=== PATIENT | male | born 1995 | race Caucasian/White ===

== ENCOUNTER → 2024-07-21 | Outpatient (CLI) | payer OTHER, SELFPAY ==
--- NOTE | 2024-07-21 15:26 | RAD_ITS ---
PROCEDURE: LUMBAR SPINE 2 OR 3 VIEWS 07/21/2024 REASON FOR EXAM: LOW BACK INJURY TECHNIQUE: 2 view(s) of the lumbar spine, AP and lateral COMPARISON: None available FINDINGS: 5 [id number] lumbar vertebral type bodies identified. No fracture or malalignment. The disc spaces appear within limits. No osseous lesion identified. RAD/Lumbar Spine 2 or 3 Views IMPRESSION: Study appears within limits. Reading Location: [id number]
== END | disposition home or self-care (01) ==
PROVIDERS: PCP Family Medicine; Referring Provider Family Medicine; Visit Provider Family Medicine
DX: M54.50 Low back pain, unspecified (principal)
CPT/HCPCS: 72100

== ENCOUNTER → 2024-09-01 | Outpatient (CLI) | payer OTHER, SELFPAY ==
--- NOTE | 2024-09-01 08:00 | MRI_ITS ---
PROCEDURE: SPINE LUMBAR (ROUTINE) 09/01/2024 REASON FOR EXAM: ONGOING BACK PAIN WITH RADICULOPATHY TECHNIQUE: Multiplanar and multisequence images were obtained without IV contrast administration. COMPARISON: Lumbar spine series of 07/21/2024. FINDINGS: Vertebrae: Intact. No abnormal vertebral signal is seen. Alignment: Satisfactory. No evidence of spondylolysis or spondylolisthesis. Conus Medullaris: Satisfactory appearance and position. Tip projects at the L1- L2 level. L1-2: Unremarkable L2-3: Unremarkable L3-4: Unremarkable L4-5: Disc degeneration mild disc space narrowing. A mild broad-based disc protrusion is seen. No spinal canal stenosis or neural foraminal narrowing is noted. L5-S1: Disc degeneration with mild disc space narrowing. A [id number] central disc protrusion is seen. No significant spinal canal stenosis is noted. Possible mild left neural foraminal narrowing. Sacrum: Visualized portions show no significant abnormality. MRI/Spine Lumbar (Routine) IMPRESSION: Lower lumbar degenerative disc disease, as described. No significant spinal ca nal stenosis is seen. Reading Location: [place] [id number]
== END | disposition home or self-care (01) ==
PROVIDERS: PCP Family Medicine; Referring Provider Family Medicine; Visit Provider Family Medicine
DX: M54.16 Radiculopathy, lumbar region (principal)
CPT/HCPCS: 72148

== ENCOUNTER 2024-11-13 17:30 | Outpatient (RCR) | payer OTHER, SELFPAY ==
--- NOTE | 2024-09-29 14:28 | HP.PTEVAL ---
Patient's Visit Information Visit Information Visit Information: KAIA WINKLER is a 29 year old M referred to Physical Therapy by JUAN FRANCISCO Farias with a diagnosis of Lumb ar radiculopathy. Date of Evaluation: 09/29/24 Physical Therapist: Ernst Cottrell, DPT, OCS, CSCS Visit Plan Frequency: 2x /Week Duration: 4-6 Weeks Plan: 2x/week for 2-4 weeeks to start for ROM progression extension with mobs as needed, return to flexion rotation ex then mat based core strength adn talk through return to gym ex program. Body mechanics andcpostural focus 2 weeks scehduleed at first as he is doing well. IE HEP: PPU, posture with towel roll, body machanics, activity modifcaiton with bending. 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 No warning and no real history. usually goes to gym but had not been going for a while. it hurt right away and had to sit on knees for a while. Lied in bed and could not get up well. Hard to get out of bed for a week. Ibuprofen and saw doctor Akilah 10 days later and it was improved. Sent to pain management and will not do injections. 90% better overall. Feels not bad at all now. Sitting for long time gets achy and sore. Stiffer in am. Has been rolling out which helps. Does not want to take pain killers. 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 Walking is no problem. Wants to get back in gym. Yard work adn working on cars Pain LBP: Pain Intensity (Out of 10): 0 Pain Intensity Range: 0 and 2 Comment: worse twisting even in bed. sitting at work. Objective Objective: Walks into PT I, trasnfers I and without pain. Lumbar AROM ext mod limited and centrally painful, SB min painful central L>R , flexion no limitations. reflexes 2/3 patella and achilles Sensation LE WNL to gross light touch. Strength LE and core 4+ without myotomal problems or weakness SLR - and slump - repeated ext i lie improvs exxt ROM and less pain. Balance/Special Test Scores Oswestry Low Back Score: 3 Goals Goal 1:: Back xxteension unlimited and no pain Goal Time Frame: 4-6 Weeks Goal 2:: Pt feel 99% back to normal and 1/10 pain at worst Goal Time Frame: 4-6 Weeks Goal 3:: I appropriate HEP for rom, strength, body mechanics and posture. Goal Time Frame: 4-6 Weeks Goal 4:: Back to playing basketball Goal Time Frame: 4-6 Weeks Goal 5:: 1 or better on oswestry Goal Time Frame: 4-6 Weeks Rehabilitation Potential Physical Therapy Diagnosis: Lb pain and stiffness limiting comfortable funciton. Rehabilitation Potential: Good Anticipated Interventions Patient/Client Instruction: Educate patient on: Condition and Plan of Care For the Purpose of:: To decrease pain, To increase ROM, To improve nutrient delivery to tissue, To improve muscle performance and motor function and To increase tolerance to activity/condition/position Therapeutic Exercise to Include: Strength training, Postural training, Flexibilty training, Passive ROM, Active ROM and Dynamic Lumbar Stabilization For the Purpose of:: To decrease pain, To increase ROM, To improve nutrient delivery to tissue and To improve muscle performance and motor function Manual Therapy Techniques to Include: Mobilization, Passive ROM and Soft tissue mobilization For the Purpose of:: To decrease pain, To increase ROM and To improve nutrient delivery to tissue Text: Thank you for the opportunity to evaluate your patient. For Medicare and Medicare HMO plans, please review the plan of care and approve it. It will need to be FAXED BACK to us at [phone] for Medicare purposes. For Medicare only, by signing this I certify the plan of care. Please let me know if there are questions or concerns regarding this plan of care. Physician Signature: Date:
--- NOTE | 2024-11-13 18:27 | HP.PTREVAL_ITS ---
Re-Evaluation Intro: JUAN FRANCISCO Farias, It has been my pleasure to treat KAIA WINKLER over the last 13 visits for Lumb ar radiculopathy. Please see the progress note below for an update on the physical therapy plan of care! Subjective Subjective: I feel ready to be done Objective Objective/Function: LBP is 1/10 Pt has returned to playing basketball without limitation Pt is I with HEP Rx goals achieved Plan Plan Plan: Recheck or discharge in one month Balance/Gait/Functional tests Balance/Special Test Scores Oswestry Low Back Score: 5 Goals Goals Goal 1:: Back xxteension unlimited and no pain Goal Time Frame: 4-6 Weeks Goal Progress: Goal Met Goal 2:: Pt feel 99% back to normal and 1/10 pain at worst Goal Time Frame: 4-6 Weeks Goal Progress: Goal Met Goal 3:: I appropriate HEP for rom, strength, body mechanics and posture. Goal Time Frame: 4-6 Weeks Goal Progress: Goal Met Goal 4:: Back to playing basketball Goal Time Frame: 4-6 Weeks Goal Progress: Goal Met Goal 5:: 1 or better on oswestry Goal Time Frame: 4-6 Weeks Goal Progress: Progressing Anticipated Interventions Anticipated Interventions Patient/Client Instruction: Educate patient on: Condition and Plan of Care For the Purpose of:: To decrease pain, To increase ROM, To improve nutrient delivery to tissue, To improve muscle performance and motor function and To increase tolerance to activity/condition/position Therapeutic Exercise to Include: Strength training, Postural training, Flexibilty training, Passive ROM, Active ROM and Dynamic Lumbar Stabilization For the Purpose of:: To decrease pain, To increase ROM, To improve nutrient delivery to tissue and To improve muscle performance and motor function Manual Therapy Techniques to Include: Mobilization, Passive ROM and Soft tissue mobilization For the Purpose of:: To decrease pain, To increase ROM and To improve nutrient delivery to tissue Re-Evaluation Ending Re-evaluation ending: Please do not hesitate to contact me at [phone] by phone or Fax: if you have questions or concerns regarding this new plan of care! Sincerely, Juan Ivan, PT, ATC
--- NOTE | 2025-01-02 08:41 | HP.PT.NRP ---
Patient Information Patient Information: KAIA WINKLER was seen in my office for initial evaluation on 09/29/24. The following Plan of Care was established for this patient: POC Established Initial Frequency: 2x /Week Initial Duration: 4-6 Weeks Anticipated Interventions Patient/Client Instruction: Educate patient on: Condition and Plan of Care For the Purpose of:: To decrease pain, To increase ROM, To improve nutrient delivery to tissue, To improve muscle performance and motor function and To increase tolerance to activity/condition/position Therapeutic Exercise to Include: Strength training, Postural training, Flexibilty training, Passive ROM, Active ROM and Dynamic Lumbar Stabilization For the Purpose of:: To decrease pain, To increase ROM, To improve nutrient delivery to tissue and To improve muscle performance and motor function Manual Therapy Techniques to Include: Mobilization, Passive ROM and Soft tissue mobilization For the Purpose of:: To decrease pain, To increase ROM and To improve nutrient delivery to tissue Last Seen Last Seen: This patient was last seen in our office 11/13/24. Pertinent comments regarding their Physical therapy will appear below: Pt seen 13 visits of POC and was 65% better and "ready to be done" He was to f/u one month later for d/c if needed but did not schedule or attend. At this point, it has been over 6 weeks and I will discontinue from my care. At this point I will be discontinuing this patient from physical therapy. I would be happy to see this patient again in the future if found appropriate by the physician. Thank you! Ernst Cottrell, DPT, OCS, CSCS Balance/Gait/Functional tests Balance/Special Test Scores Oswestry Low Back Score: 5
== END 2024-11-13 19:00 | disposition home or self-care (01) ==
LOC: PT 17:30
PROVIDERS: PCP Family Medicine; Referring Provider Student in an Organized Health Care Education/Training Program; Visit Provider Student in an Organized Health Care Education/Training Program
DX: M54.16 Radiculopathy, lumbar region (principal)
CPT/HCPCS: 97110; 97161; 97530

== ENCOUNTER 2024-12-29 09:10 | Emergency (ER) | payer OTHER, SELFPAY ==
[2024-12-29 09:11] VITALS: BP 117/69; PULSE 93; RESP 18; TEMP 36.1; O2SAT 100; BMI 23.3
--- NOTE | 2024-12-29 09:52 | EKG12_ITS ---
Test Reason : SYNCOPE Blood Pressure : */* mmHG Vent. Rate : 88 BPM Atrial Rate : 92 BPM P-R Int : 136 ms QRS Dur : 100 ms QT Int : 368 ms P-R-T Axes : 57 71 62 degrees QTcB Int : 445 ms Sinus rhythm with marked sinus arrhythmia Otherwise normal ECG Confirmed by David Olguin ([id number]), market editor PRETTY FELIZ ([id number]) on 12/30/2024 10:19:24 AM Referred By: KEYSHAWN Confirmed By: David Olguin
--- NOTE | 2024-12-29 09:57 | CASEMGMT ---
Social Work SW responded to [employer] [employer] in [facility]. Pt reportedly had syncopal episode and vomiting while receiving information on infertility and IVF. Pt was taken to the ER for evaluation as he was pale and not responding to conversation. was present. Introduced self and role. Assisted to ER. shared story. SW provided support. Assisted in providing education to syncopal episode and next steps to expect for pt's medical evaluation, within this worker's scope. Offered for to contact employers and family, etc, for notification and support. contacted pt's employer and his parents. stated she is okay to be the support person to remain with pt. SW remained at bedside with and pt, providing ongoing emotional and verbal support with infertility journey. Answered 's questions and shared additional history for pt, such as having health anxiety and history of passing out with health information while listening to a podcast prior. presented to room for evaluation. SW offered additional support, but denied. requested this worker's contact information. SW provided. SW to remain available for any needs that arise. SW provided verbal hand off to ED SW. Annie Valdovinos CLEAN ROOM ASSEMBLER [employer]ER
[2024-12-29 10:01] LABS: Hematocrit 44.9 % (40-54); Hemoglobin 15.7 g/dL (13.0-16.5); Immature Granulocytes Count 0.020 X10^3/uL (0.0-0.0); Mean Corp Hgb Conc 35.0 g/dL (32-36); Mean Corpuscular Volume 78.8 fL (80-94); Mean Platelet Vol. 8.2 fl (6.2-12.0); NRBC Flagged by Analyzer 0 % (0-5); Platelet Count 308 K/mm3 (150-450); RBC Distribution Width CV 12.9 % (11.6-14.6); RBC Distribution Width SD 36.7 fl (35.1-43.9); Red Blood Count 5.70 M/mm3 (4.6-6.2); White Blood Count 7.0 K/mm3 (4.4-11.0)
[2024-12-29 10:10] VITALS: BP 119/70; PULSE 71; RESP 18; TEMP 37; O2SAT 98
--- NOTE | 2024-12-29 10:10 | EX.ED.DYSGE1 ---
HPI History of Present Illness Chief Complaint: Syncope Informant: patient Narrative Narrative: Patient is a 29-year-old male with history healthcare anxiety and syncope presenting with an episode of syncope. He was at an appointment discussing IVF with his when he started to feel hot and then passed out. He was sitting at the time in his head low back of the chair. Did not sustain any injury. He was quite pale per report. No report of any seizure activity. Notes he did not eat breakfast this morning but that is typical for him. Had some mild nausea but no vomiting. I was brought over here for further evaluation. Has had 2 other episodes of syncope in the past associated with giving blood and when listening to a podcast about a heart attack. Has otherwise been in his normal state of health and felt fine when he woke up this morning. Denies any chest pain or feeling of his heart racing. No other complaints or concerns reported at this time. [facility] Medical History Lumbar disc herniation Home Medications ?Medication ?Instructions ?Recorded ?Last Taken ?Type ascorbic acid (vitamin C) 100 50 mg PO QDAY 09/19/24 Unknown History mg/mL oral drops ubidecarenone-omega 3-vit E 25 1 cap PO ONCE 09/19/24 Unknown History mg-150 (90-60) mg-200 unit capsule (Co [id number] E-Fish Oil) Allergy/AdvReac Type Severity Reaction Status Date / Time ethinyl estradiol (From Allergy Severe Sneezing Verified 12/29/24 09:15 Seasonale (91)) levonorgestrel (From Allergy Severe Sneezing Verified 12/29/24 09:15 Seasonale (91)) Family History Mother No problems noted. Father No problems noted. Surgical History S/P LASIK surgery Social History Smoking Status: Never smoker alcohol intake: current alcohol intake frequency: a few times a week ROS ROS ED Constitutional Constitutional ED: Reports other Details: Syncope ; Denies chills or fever(s) Cardiovascular Cardiovascular: Denies chest pain Respiratory/Chest Respiratory/Chest: Denies cough or dyspnea Gastrointestinal Gastrointestinal: Denies abdominal pain, diarrhea or vomiting Genitourinary Genitourinary ED: Denies dysuria or hematuria Integumentary Denies rash Neurologic Neurologic: Reports weakness Psychiatric Psychiatric: Reports anxiety Hematologic/Lymphatic Hematologic/Lymphatic: Denies easy bleeding or easy bruising EXAM Physical Exam Const Vital Signs: 12/29/24 09:11 12/29/24 09:16 12/29/24 10:10 Temperature 96.9 F L 98.6 F Temperature Source Oral Temporal Pulse Rate 93 71 Respiratory Rate 18 18 Respiratory Effort Normal Non-Labored Respiratory Pattern Normal Blood Pressure 117/69 119/70 Blood Pressure Mean 85 86 Pulse Ox 100 98 Oxygen Delivery Method Room Air Room Air 12/29/24 11:08 Temperature 98.1 F Temperature Source Pulse Rate 76 Respiratory Rate 16 Respiratory Effort Respiratory Pattern Blood Pressure 118/88 H Blood Pressure Mean 98 Pulse Ox 100 Oxygen Delivery Method Positive well nourished and well developed General Appearance ED: well developed and NAD HEENT Reports moist mucous membranes Negative for trauma Eyes PERRL and EOMs intact bilaterally General Eye ED: Negative for scleral icterus Neck supple Chest Wall inspection of chest normal and palpation of chest normal Resp normal respiratory effort and clear to auscultation bilaterally Cardio regular rate, regular rhythm and no murmurs GI normal to inspection, nondistended, normoactive bowel sounds and non-tender Extremity normal to inspection General Extremety ED: Negative for edema General Extremity: Negative for edema Neuro oriented x3 and no sensory deficits noted Sensorium / Orientation: alert Motor Exam: strength 5/5 throughout and general weakness Psych mental status grossly normal Skin no rashes or lesions noted and no wounds Skin Narrative: Mildly pale MDM MDM MDM Narrative Medical decision making narrative: Patient presents after syncopal episode while at an IVF appointments (they were discussing plan of care no procedure was done). Rapid response was called and patient was transferred to the emergency room. Patient is started feel little better but still feels weak. Differential clues vasovagal syncope, symptomatic anemia and electrolyte derangement as well as arrhythmia. Suspect given the circumstance of the syncope and that it was more vasovagal. Patient given IV fluids. Blood pressures currently normal. EKG obtained which showed sinus arrhythmia but otherwise normal. Patient monitored on telemetry for signs of any other arrhythmia. If workup negative will have patient follow-up with his primary care doctor and be discharged home. Given syncope precautions/information. Patient did inquire about obtaining a calcium score in the emergency room. Discussed that this is not something that we routinely ordered from the emergency room and he can discuss it further with his primary care doctor. Discussed is typically done to restratify patients with concern for ACS and him not sure if he meets that criteria as well. Lab Data Attestation: I reviewed the patient's lab results. Labs: Laboratory Results - last 24 hr 12/29/24 12/29/24 09:20 09:59 WBC 7.0 RBC 5.70 Hgb 15.7 Hct 44.9 MCV 78.8 L MCH 27.5 MCHC 35.0 RDW Std Deviation 36.7 RDW Coeff of Valeri 12.9 Plt Count 308 MPV 8.2 Immature Gran % (Auto) 0.300 Neut % (Auto) 31.8 L Lymph % (Auto) 54.9 H Robeson % (Auto) 9.6 Eos % (Auto) 2.4 Baso % (Auto) 1.0 Absolute Neuts (auto) 2.2 Absolute Lymphs (auto) 3.82 Nucleated RBC % 0 Sodium 138 Potassium 3.6 Chloride 102 Carbon Dioxide 21.4 Anion Gap 14 BUN 17 Creatinine 0.85 Estim Creat Clear Calc 133.59 Est GFR (MDRD) Non-Af 121 BUN/Creatinine Ratio 19.5 Glucose 162 H Calcium 9.9 POC Glucose 115 H Rhythm Strip Rhythm Strip: Sinus Rhythm Rate: 88 Ectopy: None EKG Initial EKG: Attestation: I personally reviewed and interpreted this EKG as follows: Interpretation: Sinus Rhythm Comments: Normal sinus rhythm at a rate of 88 beats per minute Sinus arrhythmia Normal axis Normal intervals Normal ST segments Prior EKG tracings: available for review Prior: Unchanged Discharge Plan Triage Chief Complaint: Syncope ED Provider: Shivani Cheng Dx/Rx/DC Orders Clinical Impression: Syncope and collapse Instructions: ED Fainting, Vagal Reaction Prescriptions: No Action Co [id number] E-Fish Oil 25-150-200 mg-mg-unit capsule 1 cap PO ONCE ascorbic acid (vitamin C) 100 mg/mL drops 50 mg PO QDAY Primary Care Provider: Abby Isbell Referrals: Abby Isbell MD [Primary Care Provider] - Activity Restrictions/Additional Instructions: Follow-up with your family doctor. Make sure your drinking plenty of fluids and eating regularly. Print Language: Taiwanese Disposition Disposition: Home, Self Care Discharge Date/Time: 12/29/24 11:10
[2024-12-29] MEDS: 0.9% Normal Saline (1000mL) 1,000 ML 1000 ML IV (10:14)
[2024-12-29 10:40] LABS: Anion Gap 14 (5-15); BUN 17 mg/dL (4-19); BUN/Creat Ratio 19.5 RATIO (10-20); Calcium,Total 9.9 mg/dL (7.6-11.0); Carbon Dioxide 21.4 mmol/L (21.0-32.0); Chloride 102 mmol/L (98-108); Estimated Creatinine Clearance 133.59 ml/min (50-250); Glucose 162 mg/dL (70-99); Potassium 3.6 mmol/L (3.3-5.1)
[2024-12-29 11:08] VITALS: BP 118/88; PULSE 76; RESP 16; TEMP 36.7; O2SAT 100
== END 2024-12-29 11:10 | disposition home or self-care (01) ==
PROVIDERS: Emergency Provider Emergency Medicine; PCP Family Medicine; Visit Provider Emergency Medicine
DX: R55 Syncope and collapse (principal)
CPT/HCPCS: 80048; 82962; 85025; 93005; 96360; 99284; A4216

== ENCOUNTER → 2025-04-17 | Outpatient (CLI) | payer OTHER, SELFPAY ==
--- NOTE | 2025-04-17 09:08 | RAD_ITS ---
PROCEDURE: WRIST MIN 3 VIEWS 04/17/2025 REASON FOR EXAM: RIGHT WIRST INJURY TECHNIQUE: Procedure Code: RADWR Modality: DX Procedure: WRIST MIN 3 VIEWS COMPARISON: None FINDINGS: No demonstrated fracture or suspicious osseous lesion. Joint spaces well-preserved There is a slightly positive ulnar variance No foreign body or suspicious soft tissue swelling RAD/Wrist min 3 Views IMPRESSION: No demonstrated fracture or suspicious osseous lesion Positive ulnar variance Reading Location: [id number]
--- OUTSIDE RECORDS SUMMARY | 2025-04-17 09:30 | XMS RPT_ITS | CCD ---
Author Organization [facility]iniSy[facility] Care Team Providers Care Lock Master Name Role Phone Abby Isbell MD Primary Care Provider [phone] Abby Isbell MD Attending Provider Abby Isbell MD Referring Provider Myrna Clarke Attending Provider Dr. Amish Ramirez MD Attending Provider Myrna Clarke Referring Provider Dr. Jaren Capellan MD Attending Provider Abby Isbell MD Primary Care Provider Abby Isbell MD Attending Provider Abby Isbell MD Referring Provider Myrna Clarke Referring Provider Dr. Shivani Cheng DO Emergency Provider Abby Isbell MD Primary Care Physician Abby Isbell MD Referring Provider Myrna Clarke Attending Physician Dr. Amish Ramirez MD Attending Physician Dr. Jaren Capellan MD Attending Physician Dr. Shivani Cheng DO Attending Physician Dr. Shivani Cheng DO Emergency Department [facility] whit Akilah, Chalon Primary Care Unavailable Akilah, Chalon Attending Unavailable Akilah, Chalon Referring Unavailable Akilah, Chalon Primary Care Unavailable Akilah, Chalon Attending Unavailable Akilah, Chalon Referring Unavailable AnnaNavjotMyrna Attending Unavailable Anna, Myrna Referring Unavailable Akilah, Chalon Primary Care Unavailable Shivani Cheng Attending Unavailable Akilah, Chalon Primary Care Unavailable Jaren Capellan Attending Unavailable Akilah, Chalon Referring Unavailable Akilah, Chalon Primary Care Unavailable Akilah, Chalon Primary Care Unavailable Myrna Castillo Attending Unavailable Akilah, Chalon Referring Unavailable Akilah, Chalon Primary Care Unavailable Amish Ramirez Attending Unavailable Allergies Allergy Classification Reported Allergen(s) Allergy Type Date of Onset Reaction(s) Facility (5 sources) Ethinyl Estradiol Drug Allergy 5 [facility] (5 sources) Levonorgestrel Drug Allergy 5 [facility] (1 source) Ethinyl Estradiol Drug Allergy 5 [facility] (1 source) Levonorgestrel Drug Allergy 5 [facility] Medications Current Medications Medication Drug Class(es) Dates Sig (Normalized) Sig (Original) ascorbic acid 100 mg/ml oral solution (1 source) Vitamin C Start: 09-19-2024 take 50 mg by mouth once daily Ascorbic Acid (Vitamin C) 100 mg/mL drops Active 50 mg PO daily September 19, 2024 12:00am Complies with drug therapy Ascorbic Acid (Vitamin C) 100 mg/mL drops (4 sources) Start: 09-19-2024 take 50 mg by mouth once daily Ascorbic Acid (Vitamin C) 100 mg/mL drops Active 50 mg PO daily September 19, 2024 12:00am Ubidecarenone-Emery 3-Vit E (Co T-72-Yqomjoj E-Fish Oil) 25-150-200 mg-mg-unit capsule (5 sources) Start: 09-19-2024 Ubidecarenone-Omeg a 3-Vit E (Co S-37-Lkvtjlt E-Fish Oil) 25-150-200 mg-mg-unit capsule Active 1 NMA PO ONCE September 19, 2024 12:00am Complies with drug therapy Start: 09-19-2024 Ubidecarenone- Emery 3-Vit E (Co W-25-Ptruhrm E-Fish Oil) 25-150-200 mg-mg-unit capsule Active 1 NMA PO ONCE September 19, 2024 12:00am Problems Problem Classification Problem Date Documented Date Episodic/Chronic Spondylosis; intervertebral disc disorders; other back problems (6 sources) Prolapsed lumbar intervertebral disc; Translations: [Other intervertebral disc displacement, lumbar region] 10-10-2024 Chronic Spondylosis; intervertebral disc disorders; other back problems (18 sources) Lumbar radiculopathy; Translations: [Radiculopathy, lumbar region] Onset: 01-08-2025 Episodic Syncope (3 sources) Syncope and collapse; Translations: [Syncope and collapse] Onset: 01-01-2025 12-29-2024 Episodic Unclassified (9 sources) M54.16 - Radiculopathy, lumbar region Unclassified (1 source) Low back pain, unspecified; Translations: [Low back pain, unspecified] Onset: 09-24-2024 Results Test Name Value Interpretation Reference Range Facility 12 Lead EKGon 12-29-2024 12 Lead EKG [facility] Cardi[facility] Services [address] [place] [address] 12 Lead EKG 12/29/24 0913 MR#: [id number] Acct: [id number] Name: KAIA WINKLER Rep #: [id number] : 1995 29 From: David Olguin MD Attending Dr: Status: DEP ER Ordering Dr: Shivani Cheng DO Date: 12/29/24 Location: ED Sex: M C Admitted: Test Reason : SYNCOPE Blood Pressure : */* mmHG Vent. Rate : 88 BPM Atrial Rate : 92 BPM P-R Int : 136 ms QRS Dur : 100 ms QT Int : 368 ms P-R-T Axes : 57 71 62 degrees QTcB Int : 445 ms Sinus rhythm with marked sinus arrhythmia Otherwise normal ECG Confirmed by David Olguin ([id number]), assignment editor PRETTY FELIZ ([id number]) on 12/30/2024 10:19:24 AM Referred By: KEYSHAWN Confirmed By: David Olguin 12/30/24 1019 Date David Olguin MD CC: Dr. Abby Isbell MD; Dr. Shivani Cheng DO Signed Normal [facility] Absolute lymphocyte countOrd ered By: Shivani Cheng on 12-29-2024 Lymphocytes Auto (Unsp spec) [#/Vol] 3.82 10*3/uL 0.83-4.51 [facility] Absolute neutrophil countOrd ered By: Shivani Cheng on 12-29-2024 Neutrophils (Bld) [#/Vol] 2.2 10*3/uL 2.0-7.7 [facility] Anion gap in Serum or Plasma Ordered By: Shivani Cheng on 12-29-2024 Anion gap [Moles/Vol] 14 mmol/L 5- [facility] Automated lymphocyte count a s percentage of total leukocytesOrdered By: Shivani Cheng on 12-29-2024 Lymphocytes/100 WBC Auto (Unsp spec) 54.9 % High 19- [facility] BUN/creatinine ratioOrdered By: Shivani Cheng on 12-29-2024 Urea nitrogen/Creatinine [Mass ratio] 19.5 mg/mg 10- [facility] Basic Metabolic Profile (BMP )on 12-29-2024 BUN/CRE 19.5 RATIO Normal - [facility] Comment on above: Performed By: #### L 500.2500, L100.0100 #### [facility] [address] [place], [address] Calcium [Mass/Vol] 9.9 mg/dL Normal 7.6-11.0 [facility] Comment on above: Performed By: #### L 500.2500, L100.0100 #### [facility] [address] [place], [address] Chloride [Moles/Vol] 102 mmol/L Normal 98-108 [facility] Comment on above: Performed By: #### L 500.2500, L100.0100 #### [facility] [address] [place], [address] CO2 [Moles/Vol] 21.4 mmol/L Normal 21.0-32.0 [facility] Comment on above: Performed By: #### L 500.2500, L100.0100 #### [facility] [address] [place], [address] Creatinine [Mass/Vol] 0.85 mg/dL Normal 0.70-1.[address] [facility] Comment on above: Performed By: #### L 500.2500, L100.0100 #### [facility] [address] [place], [address] ECRCL 133.59 ml/min Normal 50-250 [facility] Comment on above: Performed By: #### L 500.2500, L100.0100 #### [facility] [address] [place], [address] GAP 14 Normal 5-15 [facility] Comment on above: Performed By: #### L 500.2500, L100.0100 #### [facility] [address] [place], [address] GFR/1.73 sq M.predicted among non-blacks MDRD (S/P/Bld) [Vol rate/Area] 121 mL/min/{1.73_m2} Normal >60 [facility] Comment on above: Result Comment: mL/m in/1.73m2 CKD-EPI Creatinine Equation (2020) Performed By: #### L 500.2500, L100.0100 #### [facility] [address] [place], [address] Glucose [Mass/Vol] 162 mg/dL High 70-99 [facility] Comment on above: Performed By: #### L 500.2500, L100.0100 #### [facility] [address] [place], [address] Potassium [Moles/Vol] 3.6 mmol/L Normal 3.3-5.[address] [facility] Comment on above: Performed By: #### L 500.2500, L100.0100 #### [facility] [address] [place], [address] Sodium [Moles/Vol] 138 mmol/L Normal 133-145 [facility] Comment on above: Performed By: #### L 500.2500, L100.0100 #### [facility] [address] [place], [address] Urea nitrogen [Mass/Vol] 17 mg/dL Normal 4-19 [facility] Comment on above: Performed By: #### L 500.2500, L100.0100 #### [facility] [address] [place], [address] Basophil percentageOrdered B y: Shivani Cheng on 12-29-2024 Basophils/100 WBC (Bld) 1.0 % 0-1 [facility] Bedside Glucoseon 12-29-2024 FINGERSTICK GLU 115 mg/dL High 74-106 [facility] Comment on above: Result Comment: SMITH ALBARADO OF PATIENT CARE PER NURSING PROTOCOL Performed By: #### L 501.080 #### [facility] [address] [place], [address] CBC W/Diff, Automatedon Absolute Lymph 3.82 X10 3/uL Normal 0.83-4.51 [facility] Comment on above: Performed By: #### L 500.2500, L100.0100 #### [facility] [address] [place], [address] Absolute Neut 2.2 X10 3/uL Normal 2.0-7.7 [facility] Comment on above: Performed By: #### L 500.2500, L100.0100 #### [facility] [address] [place], [address] Basophils/100 WBC (Bld) 1.0 % Normal 0-1 [facility] Comment on above: Performed By: #### L 500.2500, L100.0100 #### [facility] [address] [place], [address] Eosinophils/100 WBC (Bld) 2.4 % Normal 0-5 [facility] Comment on above: Performed By: #### L 500.2500, L100.0100 #### [facility] [address] [place], [address] Erythrocyte distribution width (RBC) [Ratio] 12.9 % Normal 11.6-14.6 [facility] Comment on above: Performed By: #### L 500.2500, L100.0100 #### [facility] [address] [place], [address] Hematocrit (Bld) [Volume fraction] 44.9 % Normal 40-54 [facility] Comment on above: Performed By: #### L 500.2500, L100.0100 #### [facility] [address] [place], [address] Hemoglobin (Bld) [Mass/Vol] 15.7 g/dL Normal 13.0-16.5 [facility] Comment on above: Performed By: #### L 500.2500, L100.0100 #### [facility] [address] [place], [address] IG% 0.300 Normal 0.0-0.9 [facility] Comment on above: Result Comment: IG% - Immature Granulocytes (promyelocytes, myelocytes and metamyelocytes) > 1% indicates that a LEFT SHIFT is Present. Performed By: #### L 500.2500, L100.0100 #### [facility] [address] [place], [address] Lymphocytes/100 WBC (Bld) 54.9 % High 19-41 [facility] Comment on above: Performed By: #### L 500.2500, L100.0100 #### [facility] [address] [place], [address] MCH (RBC) [Entitic mass] 27.5 pg Normal 27.0-32.0 [facility] Comment on above: Performed By: #### L 500.2500, L100.0100 #### [facility] [address] [place], [address] MCHC (RBC) [Mass/Vol] 35.0 g/dL Normal 32-[address] [facility] Comment on above: Performed By: #### L 500.2500, L100.0100 #### [facility] [address] [place], [address] MCV (RBC) [Entitic vol] 78.8 fL Low 80-94 [facility] Comment on above: Performed By: #### L 500.2500, L100.0100 #### [facility] [address] [place], [address] Monocytes/100 WBC (Bld) 9.6 % Normal 0-10 [facility] Comment on above: Performed By: #### L 500.2500, L100.0100 #### [facility] [address] [place], [address] Neutrophils/100 WBC (Bld) 31.8 % Low 47-70 [facility] Comment on above: Performed By: #### L 500.2500, L100.0100 #### [facility] [address] [place], [address] Nucleated RBC (Bld) [#/Vol] 0 10*3/uL Normal 0-5 [facility] Comment on above: Performed By: #### L 500.2500, L100.0100 #### [facility] [address] [place], [address] Platelet mean volume (Bld) [Entitic vol] 8.2 fL Normal 6.2-12.0 [facility] Comment on above: Performed By: #### L 500.2500, L100.0100 #### [facility] [address] [place], [address] Platelets (Bld) [#/Vol] 308 10*3/uL Normal 150-450 [facility] Comment on above: Performed By: #### L 500.2500, L100.0100 #### [facility] [address] [place], [address] RBC (Bld) [#/Vol] 5.70 10*6/uL Normal 4.6-6.2 [facility] Comment on above: Performed By: #### L 500.2500, L100.0100 #### [facility] [address] [place], [address] RDW SD 36.7 fl Normal 35.1-43.9 [facility] Comment on above: Performed By: #### L 500.2500, L100.0100 #### [facility] [address] [place], [address] WBC (Bld) [#/Vol] 7.0 10*3/uL Normal 4.4-11.0 [facility] Comment on above: Performed By: #### L 500.2500, L100.0100 #### [facility] [address] [place], [address] Carbon dioxide, total [Moles /volume] in Central venous bloodOrdered By: Shivani Cheng on 12-29-2024 CO2 [Moles/Vol] 21.4 mmol/L 21.0-32.0 [facility] Chloride assayOrdered By: Edvin Cheng on 12-29-2024 Chloride [Moles/Vol] 102 mmol/L 98-108 [facility] Emergency Department Summary on 12-29-2024 Emergency Department Summary [facility] Medical Records Department [address] [place] [address] Emergency Department Summary 12/29/24 MR#: [id number] Acct: [id number] Name: KAIA WINKLER Rep #: [id number] : 1995 29 From: Shivani Cheng DO PCP: Dr. Abby Isbell MD Status:DEP ER Location: ED HPI History of Present Illness Chief Complaint: Syncope Informant: patient Narrative Narrative: Patient is a 29-year-old male with history healthcare anxiety and syncope presenting with an episode of syncope. He was at an appointment discussing IVF with his when he started to feel hot and then passed out. He was sitting at the time in his head low back of the chair. Did not sustain any injury. He was quite pale per report. No report of any seizure activity. Notes he did not eat breakfast this morning but that is typical for him. Had some mild nausea but no vomiting. I was brought over here for further evaluation. Has had 2 other episodes of syncope in the past associated with giving blood and when listening to a podcast about a heart attack. Has otherwise been in his normal state of health and felt fine when he woke up this morning. Denies any chest pain or feeling of his heart racing. No other complaints or concerns reported at this time. [facility] Medical History Lumbar disc herniation Home Medications ???Medication ???Instructions ???Recorded ???Last Taken ???Type ascorbic acid (vitamin C) 100 50 mg PO QDAY 09/19/24 Unknown His tory mg/mL oral drops ubidecarenone-omega 3-vit E 25 1 cap PO ONCE 09/19/24 Unknown His tory mg-150 (90-60) mg-200 unit capsule (Co U-26-Dchdeat E-Fish Oil) Allergy/AdvReac Type Severity Reaction Status Date / Time ethinyl estradiol (From Allergy Severe Sneezing Verified 12/29/24 09:15 [place] (91)) levonorgestrel (From Allergy Severe Sneezing Verified 12/29/24 09:15 [place] (91)) Family History Mother No problems noted. Father No problems noted. Surgical History S/P LASIK surgery Social History Smoking Status: Never smoker alcohol intake: current alcohol intake frequency: a few times a week ROS ROS ED Constitutional Constitutional ED: Reports other Details: Syncope ; Denies chills or fever(s) Cardiovascular Cardiovascular: Denies chest pain Respiratory/Chest Respiratory/Chest: Denies cough or dyspnea Gastrointestinal Gastrointestinal: Denies abdominal pain, diarrhea or vomiting Genitourinary Genitourinary ED: Denies dysuria or hematuria Integumentary Denies rash Neurologic Neurologic: Reports weakness Psychiatric Psychiatric: Reports anxiety Hematologic/Lymphat ic Hematologic/Lymphat ic: Denies easy bleeding or easy bruising EXAM Physical Exam Const Vital Signs: 12/29/24 09:11 12/29/24 09:16 12/29/24 10:10 Temperature 96.9 F L 98.6 F Temperature Source Oral Temporal Pulse Rate 93 71 Respiratory Rate 18 18 Respiratory Effort Normal Non-Labored Respiratory Pattern Normal Blood Pressure 117/69 119/70 Blood Pressure Mean 85 86 Pulse Ox 100 98 Oxygen Delivery Method Room Air Room Air 12/29/24 11:08 Temperature 98.1 F Temperature Source Pulse Rate 76 Respiratory Rate 16 Respiratory Effort Respiratory Pattern Blood Pressure 118/88 H Blood Pressure Mean 98 Pulse Ox 100 Oxygen Delivery Method Positive well nourished and well developed General Appearance ED: well developed and NAD HEENT Reports moist mucous membranes Negative for trauma Eyes PERRL and EOMs intact bilaterally General Eye ED: Negative for scleral icterus Neck supple Chest Wall inspection of chest normal and palpation of chest normal Resp normal respiratory effort and clear to auscultation bilaterally Cardio regular rate, regular rhythm and no murmurs GI normal to inspection, nondistended, normoactive bowel sounds and non-tender Extremity normal to inspection General Extremety ED: Negative for edema General Extremity: Negative for edema Neuro oriented x3 and no sensory deficits noted Sensorium / Orientation: alert Motor Exam: strength 5/5 throughout and general weakness Psych mental status grossly normal Skin no rashes or lesions noted and no wounds Skin Narrative: Mildly pale MDM MDM MDM Narrative Medical decision making narrative: Patient presents after syncopal episode while at an IVF appointments (they were discussing plan of care no procedure was done). Rapid response was called and patient was transferred to the emergency room. Patient is started feel little better but stil (more content not included)... Normal [facility] Eosinophil percentageOrdered By: Shivani Cheng on 12-29-2024 Eosinophils/100 WBC (Bld) 2.4 % 0-5 [facility] Erythrocyte distribution wid th ratioOrdered By: Shivani Cheng on 12-29-2024 Erythrocyte distribution width (RBC) [Ratio] 12.9 % 11.6-14.6 [facility] Erythrocyte distribution wid th standard deviationOrdered By: Shivani Cheng on 12-29-2024 Erythrocyte distribution width (RBC) [Ratio] 36.7 fl 35.1-43.9 [facility] Glomerular filtration rate ( GFR) estimation/1.73 sq m using serum, plasma, or whole bOrdered By: Shivani Cheng on 12-29-2024 GFR/1.73 sq M.predicted among non-blacks MDRD (S/P/Bld) [Vol rate/Area] 121 mL/min/{1.73_m2} >60 [facility] Comment on above: mL/min/1.73m2 CKD-EP I Creatinine Equation (2020) [facility]dered By: Shivani Cheng on 12-29-2024 Glucose [Mass/Vol] 115 mg/dL High 74-106 [facility] Comment on above: MANAGEMENT OF PATIEN T CARE PER NURSING PROTOCOL Hematocrit Auto (Bld) [Volum e fraction]Ordered By: Shivani Cheng on 12-29-2024 Hematocrit (Bld) [Volume fraction] 44.9 % 40-54 [facility] Hemoglobin measurementOrdere d By: Shivani Cheng on 12-29-2024 Hemoglobin (Bld) [Mass/Vol] 15.7 g/dL 13.0-16.5 [facility] Immature granulocytes/100 WB C Auto (Bld)Ordered By: Shivani Cheng on 12-29-2024 Immature granulocytes/100 WBC (Bld) 0.300 % 0.0-0.9 [facility] Comment on above: IG% - Immature Granu locytes (promyelocytes, myelocytes and metamyelocytes) > 1% indicates that a LEFT SHIFT is Present. MCV (mean corpuscular volume ) determinationOrdered By: Shivani Cheng on 12-29-2024 MCV (RBC) [Entitic vol] 78.8 fL Low 80-94 [facility] Mean corpuscular hemoglobin (MCH) determinationOrdered By: Shivani Cheng on 12-29-2024 MCH (RBC) [Entitic mass] 27.5 pg 27.0-32.0 [facility] Mean corpuscular hemoglobin concentration (MCHC) determinationOrdered By: Shivani Cheng on 12-29-2024 MCHC (RBC) [Mass/Vol] 35.0 g/dL 32-[address] [facility] Mean platelet volume determi nationOrdered By: Shivani Cheng on 12-29-2024 Platelet mean volume (Bld) [Entitic vol] 8.2 fL 6.2-12.0 [facility] Monocyte percentageOrdered B y: Shivani Cheng on 12-29-2024 Monocytes/100 WBC (Bld) 9.6 % 0-10 [facility] Neutrophil percentageOrdered By: Shivani Cheng on 12-29-2024 Neutrophils/100 WBC (Bld) 31.8 % Low 47-70 [facility] Nucleated red blood cell per centageOrdered By: Shivani Cheng on 12-29-2024 Nucleated RBC/100 WBC (Bld) [Ratio] 0 % 0-5 [facility] Platelet countOrdered By: Edvin Cheng on 12-29-2024 Platelets (Bld) [#/Vol] 308 10*3/uL 150-450 [facility] Potassium measurement (mass/ volume)Ordered By: Shivani Cheng on 12-29-2024 Potassium (Unsp spec) [Mass/Vol] 3.6 mmol/L 3.3-5.1 [facility] RBC Auto (Bld) [#/Vol]Ordere d By: Shivani Cheng on 12-29-2024 RBC (Bld) [#/Vol] 5.70 10*6/uL 4.6-6.2 [facility] Serum creatinine measurement (mass/volume)Ordered By: Shivani Cheng on 12-29-2024 Creatinine [Mass/Vol] 0.85 mg/dL 0.70-1.[address] [facility] Serum glucose measurement (m ass/volume)Ordered By: Shivani Cheng on 12-29-2024 Glucose [Mass/Vol] 162 mg/dL High 70-99 [facility] Serum or plasma calcium yahaira urement (mass/volume)Ordered By: Shivani Cheng on 12-29-2024 Calcium [Mass/Vol] 9.9 mg/dL 7.6-11.0 [facility] Serum or plasma urea nitroge n measurement (mass/volume)Ordered By: Shivani Cheng on 12-29-2024 Urea nitrogen [Mass/Vol] 17 mg/dL 4-19 [facility] Sodium levelOrdered By: Conchis Cheng on 12-29-2024 Sodium [Moles/Vol] 138 mmol/L 133-145 [facility] White blood cell (WBC) count Ordered By: Shivani Cheng on 12-29-2024 WBC (Bld) [#/Vol] 7.0 10*3/uL 4.4-11.0 [facility] Re-Evaluation - PT (1)on Re-Evaluation - PT (1) [facility] Physical Therapy [facility] [address] [place] [address] [address] [place] [address] / REEVALUATION / MEDICARE RECERTIFICATION PHYSICAL THERAPY MR#: [id number] Acct: [id number] Name: KAIA WINKLER Rep #: [id number] : 1995 29 From: Juan Ivan PT, ATC Referring Dr.: JUAN FRANCISCO Farias Status:REG RCR Insurance: [facility] SELF PAY INSURANCE Re-Evaluation Intro: JUAN FRANCISCO Farias, It has been my pleasure to treat KAIA WINKLER over the last 13 visits for Lumb ar radiculopathy. Please see the progress note below for an update on the physical therapy plan of care! Subjective Subjective: I feel ready to be done Objective Objective/Function: LBP is 1/10 Pt has returned to playing basketball without limitation Pt is I with HEP Rx goals achieved Plan Plan Plan: Recheck or discharge in one month Balance/Gait/Functi onal tests Balance/Special Test Scores Oswestry Low Back Score: 5 Goals Goals Goal 1:: Back xxteension unlimited and no pain Goal Time Frame: 4-6 Weeks Goal Progress: Goal Met Goal 2:: Pt feel 99% back to normal and 1/10 pain at worst Goal Time Frame: 4-6 Weeks Goal Progress: Goal Met Goal 3:: I appropriate HEP for rom, strength, body mechanics and posture. Goal Time Frame: 4-6 Weeks Goal Progress: Goal Met Goal 4:: Back to playing basketball Goal Time Frame: 4-6 Weeks Goal Progress: Goal Met Goal 5:: 1 or better on oswestry Goal Time Frame: 4-6 Weeks Goal Progress: Progressing Anticipated Interventions Anticipated Interventions Patient/Client Instruction: Educate patient on: Condition and Plan of Care For the Purpose of:: To decrease pain, To increase ROM, To improve nutrient delivery to tissue, To improve muscle performance and motor function and To increase tolerance to activity/condition/ position Therapeutic Exercise to Include: Strength training, Postural training, Flexibilty training, Passive ROM, Active ROM and Dynamic Lumbar Stabilization For the Purpose of:: To decrease pain, To increase ROM, To improve nutrient delivery to tissue and To improve muscle performance and motor function Manual Therapy Techniques to Include: Mobilization, Passive ROM and Soft tissue mobilization For the Purpose of:: To decrease pain, To increase ROM and To improve nutrient delivery to tissue Re-Evaluation Ending Re-evaluation ending: Please do not hesitate to contact me at [phone] by phone or if you have questions or concerns regarding this new plan of care! Sincerely, Juan Ivan, PT, ATC 11/13/24 1827 CC: JUAN FRANCISCO Farias; Dr. Abby Isbell MD [facility] Signed For Medicare only, by signing this I certify the plan of care. _ Physicians Signature Date Normal [facility] Orthopedic Visit Reporton Orthopedic Visit Report [facility] [address] [place] [address] OFFICE VISIT Date of Service: 10/10/24 MR#: [id number] Acct: [id number] Name: KAIA WINKLER Rep #: [id number] : 1995 Provider: Dr. Jaren Capellan MD Age/Sex: 29/M Location: [facility] Status: Signed Intake Vital Signs 09/19/24 07:59 Height 5 ft 10 in Weight: 157 lb 6 oz BMI 22.6 Intake Visit Reasons: LUMBAR SPINE Chief Complaint: Lumbar spine pain Is patient in pain?: Yes (low back ) Pain scale (1-10): 2 Allergies ethinyl estradiol (From Seasonale ()) Allergy (Severe, Verified 10/10/24 08:32) Sneezing levonorgestrel (From Seasonale ()) Allergy (Severe, Verified 10/10/24 08:32) Sneezing Medications ???Medication ???Instructions ???Recorded ???Confirmed ???Type ascorbic acid (vitamin C) 100 50 mg PO QDAY 09/19/24 09/19/24 Hi story mg/mL oral drops ubidecarenone-omega 3-vit E 25 1 cap PO ONCE 09/19/24 09/19/24 Hi story mg-150 (90-60) mg-200 unit capsule (Co C-69-Rysrlzr E-Fish Oil) [facility] Medical History (Updated 10/10/24 @ 08:58 by Galina Hussein RN) Lumbar disc herniation Surgical History S/P LASIK surgery Family History Mother No problems noted. Father No problems noted. Social History Smoking Status: Never smoker alcohol intake: current alcohol intake frequency: a few times a week HPI LUMBAR SPINE Chief Complaint: lumbar spine Details: This documentation accurately reflects the service provided and the decisions made by me, Dr. Jaren Capellan MD 10/10/24 0833. Part of today???s visit was documented by Galina Hussein RN, acting as scribe. KAIA WINKLER is a 29 year old M here today for lumbar spine pain. He complains of centralized low back pain. Pt. would like to discuss if he is able to go on [employer] v2 Ratingsers. He was seen by Dr. Ruiz did not recommend injections. He states he has had 3 PT sessions and has noticed some improvement. He rates his pain 1/10 today is slightly worse on the left. He would also like a note for his work to get a new chair. PT recommends a lumbar pillow. He denies numbness or tingling into his legs. He states he is getting better but he is still not able to lift heavy objects or do yard work without discomfort. He does wear a back brace to help with this. Walking and standing do not cause pain. Sitting for long periods does exacerbates his pain. He has not gone to the gym because he is afraid it will exacerbate his pain. The patient is a 29-year-old male presenting with lumbar disc herniation. The condition began in mid-June, with severe back pain that initially prevented him from getting out of bed independently. The pain was primarily midline, favoring the left side, and radiated to the gluteal region without extending to the legs. The patient has been undergoing pain management and physical therapy, which initially improved his condition, though progress has plateaued. He reports discomfort with lifting and prolonged sitting, and uses a back brace for support. His sedentary job involves desk work, which exacerbates his symptoms due to prolonged sitting. He has stopped gym activities and awaits further physical therapy guidance on suitable exercises. Imaging studies showed a slight leftward tilt and reduced disc height at the lower lumbar levels, with a small herniation at L5-S1 and a bulge at L4-5. The MRI indicated disc desiccation without significant nerve compression or stenosis. - Musculoskeletal: Reports midline back pain favoring the left side, radiating to the gluteal region. Denies pain radiating down the legs. - Neurological: Denies tingling or numbness in the lower extremities. Attestation: Documentation on this patient encounter was supported using ambient scribe technology/ voice AI technology. The patient consented to recording for the purpose of documenting the encounter. Provider reviewed content of the generated note prior to signature. Ortho Exam General General: Yes no acute distress Neurologic: Yes alert and Yes oriented x3 Psychologic: Yes reasonable and appropriate Spine SPINE TESTING CERVICAL THORACIC LUMBAR Musculoskeletal Strength 0=absent - 5=normal Details: Neurological exam of the lower extremities shows 5x5 power. Normal sensations across all dermatomes. No hyperreflexia. No midline or paraspinal tenderness. Exam Narrative - Musculoskeletal: Strength equal in both legs, minimal midline tenderness noted. - Neurological: No tingling or numbness in lower extremities observed. Coding Level of Care Code Off vis,est,level 4 Diagnoses Lumbar radiculopathy M54.16 Lumbar (more content not included)... Normal [facility] Inital Evaluation (1) - PTon 09-29-2024 Inital Evaluation (1) - PT [facility] Physical Therapy [facility] [address] [place] [address] / [facility] SERVICES INITIAL EVALUATION MR#: [id number] Acct: [id number] Name: KAIA WINKLER Rep #: [id number] : 1995 29 From: Ernst Cottrell DPT, HEMANT, CSCS Referring Dr.: JUAN FRANCISCO Farias Status: REG RCR Insurance: [facility] SELF PAY INSURANCE Patient's Visit Information Visit Information Visit Information: KAIA WINKLER is a 29 year old M referred to Physical Therapy by JUAN FRANCISCO Farias with a diagnosis of Lumb ar radiculopathy. Date of Evaluation: 09/29/24 Physical Therapist: Ernst Cottrell DPT, HEMANT, CSCS Visit Plan Frequency: 2x /Week Duration: 4-6 Weeks Plan: 2x/week for 2-4 weeeks to start for ROM progression extension with mobs as needed, return to flexion rotation ex then mat based core strength adn talk through return to gym ex program. Body mechanics andcpostural focus 2 weeks scehduleed at first as he is doing well. IE HEP: PPU, posture with towel roll, body machanics, activity modifcaiton with bending. 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 No warning and no real history. usually goes to gym but had not been going for a while. it hurt right away and had to sit on knees for a while. Lied in bed and could not get up well. Hard to get out of bed for a week. Ibuprofen and saw doctor Akilah 10 days later and it was improved. Sent to pain management and will not do injections. 90% better overall. Feels not bad at all now. Sitting for long time gets achy and sore. Stiffer in am. Has been rolling out which helps. Does not want to take pain killers. 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 Walking is no problem. Wants to get back in gym. Yard work adn working on cars Pain LBP: Pain Intensity (Out of 10): 0 Pain Intensity Range: 0 and 2 Comment: worse twisting even in bed. sitting at work. Objective Objective: Walks into PT I, trasnfers I and without pain. Lumbar AROM ext mod limited and centrally painful, SB min painful central L>R , flexion no limitations. reflexes 2/3 patella and achilles Sensation LE WNL to gross light touch. Strength LE and core 4+ without myotomal problems or weakness SLR - and slump - repeated ext i lie improvs exxt ROM and less pain. Balance/Special Test Scores Oswestry Low Back Score: 3 Goals Goal 1:: Back xxteension unlimited and no pain Goal Time Frame: 4-6 Weeks Goal 2:: Pt feel 99% back to normal and 1/10 pain at worst Goal Time Frame: 4-6 Weeks Goal 3:: I appropriate HEP for rom, strength, body mechanics and posture. Goal Time Frame: 4-6 Weeks Goal 4:: Back to playing basketball Goal Time Frame: 4-6 Weeks Goal 5:: 1 or better on oswestry Goal Time Frame: 4-6 Weeks Rehabilitation Potential Physical Therapy Diagnosis: Lb pain and stiffness limiting comfortable funciton. Rehabilitation Potential: Good Anticipated Interventions Patient/Client Instruction: Educate patient on: Condition and Plan of Care For the Purpose of:: To decrease pain, To increase ROM, To improve nutrient delivery to tissue, To improve muscle performance and motor function and To increase tolerance to activity/condition/ position Therapeutic Exercise to Include: Strength training, Postural training, Flexibilty training, Passive ROM, Active ROM and Dynamic Lumbar Stabilization For the Purpose of:: To decrease pain, To increase ROM, To improve nutrient delivery to tissue and To improve muscle performance and motor function Manual Therapy Techniques to Include: Mobilization, Passive ROM and Soft tissue mobilization For the Purpose of:: To decrease pain, To increase ROM and To improve nutrient delivery to tissue Text: Thank you for the opportunity to evaluate your patient. For Medicare and Medicare HMO plans, please review the plan of care and approve it. It will need to be FAXED BACK to us at [phone] for Medicare purposes. For Medicare only, by signing this I certify the plan of care. Please let me know if there are questions or concerns regarding this plan of care. Physician Signature: __Date: 09/29/24 1428 CC: JUAN FRANCISCO Farias; Dr. Abby Isbell MD EB Signed Normal [facility] L/S Spine Bending Flex/[place] 09-19-2024 L/S Spine Bending Flex/Ext [facility] Imaging Services [address] [place] [address] [id number] L/S Spine Bending Flex/Ext MR#: [id number] Acct: [id number] Name: KAIA WINKLER Rep #: [id number] : 1995 M 29 From: Noel Huerta MD PCP: Dr. Abby Isbell MD Status: DEP AMB Study: L/S Spine Bending Flex/Ext Date of Exam: 09/19 Exam# [id number] Ordering Dr: Myrna Castillo EXAM: XR Lumbosacral Spine Flexion/Extension Only, 2 or 3 Views CLINICAL INDICATION: ONGOING BACK PAIN TECHNIQUE: Lateral flexion/extension views of the lumbar spine and sacrum. COMPARISON: No relevant prior studies available. FINDINGS: VERTEBRAE: Mild endplate degenerative change and disc disease of L4 to S1. Normal sagittal alignment. No acute fracture or significant dynamic instability. SACRUM/COCCYX: Unremarkable as visualized. No acute fracture. DISC SPACES: No acute findings. No significant narrowing. SOFT TISSUES: Unremarkable. RAD/L/S Spine Bending Flex/Ext IMPRESSION: No acute fracture or significant dynamic instability. Reading Location: [facility] CC: JUAN FRANCISCO Farias; Dr. Abby Isbell MD [employer]: Signed Normal [facility] Orthopedic Visit Reporton Orthopedic Visit Report [facility] [address] [place] [id number] OFFICE VISIT Date of Service: 09/19/24 MR#: [id number] Acct: [id number] Name: KAIA WINKLER Rep #: [id number] : 1995 Provider: JUAN FRANCISCO Farias Age/Sex: 29/M Location: [facility] Status: Signed Intake Vital Signs 09/19/24 07:59 Height 5 ft 10 in Weight: 157 lb 6 oz BMI 22.6 Intake Visit Reasons: LUMBAR SPINE Chief Complaint: Lumbar spine pain Accompanied by: Self Is patient in pain?: Yes Pain scale (1-10): 2 Allergies ethinyl estradiol (From Seasonale ()) Allergy (Severe, Verified 09/19/24 08:05) Sneezing levonorgestrel (From Seasonale (91)) Allergy (Severe, Verified 09/19/24 08:05) Sneezing Medications ???Medication ???Instructions ???Recorded ???Confirmed ???Type ascorbic acid (vitamin C) 100 50 mg PO QDAY 09/19/24 09/19/24 Hi story mg/mL oral drops ubidecarenone-omega 3-vit E 25 1 cap PO ONCE 09/19/24 09/19/24 Hi story mg-150 (90-60) mg-200 unit capsule (Co Z-61-Qsajdld E-Fish Oil) Have you fallen in the past year?: No PFSH Surgical History S/P LASIK surgery Family History Mother No problems noted. Father No problems noted. Social History Smoking Status: Never smoker alcohol intake: current alcohol intake frequency: a few times a week HPI LUMBAR SPINE Details: This documentation accurately reflects the service provided and the decisions made by me, JUAN FRANCISCO Farias 09/19/24 0759. Part of today???s visit was documented by Orestes Merida MA, acting as scribe. KAIA WINKLER is a 29 year old M here today for lumbar spine pain. Patient is having pain in the lower back. The pain is mild and dull. It can be sharp at times. The lower back pain can go into the glutes. This has been going on since 07/05/2024. Is that since this flare in June his pain has gotten better. However at this point he feels like the pain has kind of plateaued over the last several weeks and has not continued to improve. Patient was sanding drywall, and felt a sharp pain in the lower back. He laid in his bed for a little bit, but then he was in so much pain that it was hard to get back up. Patient denies any surgeries in the past or recently on his back. Left side symptoms can be worse. Twisting makes the pain worse. Lifting heavy items makes the pain worse. Sitting down for a long period of time makes the pain worse. Ibuprofen seems to make the pain better. He will take 2 ibuprofen at a time once a day with some mild benefit. Standing can improve his pain. Patient denies any back injections or physical therapy. Patient denies any diabetes, or blood thinners. No heart or lung issues. Patient denies any smoking, or drug use. Patient hasn't noticed any numbness or tingling in the feet or toes. No cane or walker. He was given tizanidine from Dr. Isbell, no benefit. Ortho Exam General General: Yes no acute distress Neurologic: Yes alert and Yes oriented x3 Spine SPINE TESTING CERVICAL THORACIC LUMBAR Musculoskeletal Strength 0=absent - 5=normal Details: Neurological exam of the lower extremities shows 5x5 power. Normal sensations across all dermatomes. No hyperreflexia. No midline or paraspinal tenderness. Coding Level of Care Code Off vis,new,level 4 Diagnoses Lumbar radiculopathy M54.16 Assessment and Plan Assessment and Plan (1) Lumbar radiculopathy: Status: Acute Orders: Orders L/S Spine Bending Flex/Ext Today M54.50 - Low back pain, unspecified Referrals Pain Management M54.16 - Radiculopathy, lumbar region Physical Therapy Referral M54.16 - Radiculopathy, lumbar region Plan Obtained and reviewed flexion/extension x-rays today in the clinic, reviewed prior AP and lateral x- rays independent interpretation of the x-rays was performed, awaiting radiologist report. X-rays show mild degenerative change of the L5-S1, and mild left-sided tilt, no acute fractures, no instability on dynamic views. Reviewed MRI from September 01, 2024 which shows L4-5 mild disc space narrowing with a mild broad-based disc protrusion with no significant spinal stenosis or neural foraminal stenosis. L5-S1 mild disc space narrowing with a mild to moderate central disc protrusion with no significant central canal stenosis and only a mild left neuroforaminal stenosis. Explained imaging findings in detail. At this time due to the patient's ongoing lower back pain and due to the mild findings on MRI recommend that he exhaust nonsurgical treatment at this time. This includes physical therapy and pain management. Pain management will attempt injecti (more content not included)... Normal [facility] Magnetic resonance imaging r eportOrdered By: Alexi Anton on 09-02-2024 Study report [facility] Imaging Services [address] [place] [address] Spine Lumbar (Routine) MR#: [id number] Acct: [id number] Name: KAIA WINKLER Rep #: [id number] : 1995 M 29 From: Grady Anton MD PCP: Dr. Abby Isbell MD Status: REG CL I Study:Spine Lumbar (Routine) Date of Exam: 09/01/24 Exam# [id number] Ordering Dr: Karen Isbell MD PROCEDURE: SPINE LUMBAR (ROUTINE) 09/01/2024 REASON FOR EXAM: ONGOING BACK PAIN WITH RADICULOPATHY TECHNIQUE: Multiplanar and multisequence images were obtained without IV contrast administration. COMPARISON: Lumbar spine series of 07/21/2024. FINDINGS: Vertebrae: Intact. No abnormal vertebral signal is seen. Alignment: Satisfactory. No evidence of spondylolysis or spondylolisthesis. Conus Medullaris: Satisfactory appearance and position. Tip projects at the L1-L2 level. L1-2: Unremarkable L2-3: Unremarkable L3-4: Unremarkable L4-5: Disc degeneration mild disc space narrowing. A mild broad-based disc protrusion is seen. No spinal canal stenosis or neural foraminal narrowing is noted. L5-S1: Disc degeneration with mild disc space narrowing. A yqdk-gh-kzppwvxj central disc protrusion is seen. No significant spinal canal stenosis is noted. Possible mild left neural foraminal narrowing. Sacrum: Visualized portions show no significant abnormality. MRI/Spine Lumbar (Routine) IMPRESSION: Lower lumbar degenerative disc disease, as described. No significant spinal canal stenosis is seen. Reading Location: [place] [address] CC: Dr. Abby Isbell MD ~ [employer] [address]: Signed [facility] Spine Lumbar (Routine)on Spine Lumbar (Routine) [facility] Imaging Services [address] [place] [id number] Spine Lumbar (Routine) MR#: [id number] Acct: [id number] Name: KAIA WINKLER Rep #: [id number] : 1995 M 29 From: Alexi Aldana PCP: Dr. Abby Isbell MD Status: REG CLI Study: Spine Lumbar (Routine) Date of Exam: 09/01/24 Exam# [id number] Ordering Dr: Abby Isbell MD PROCEDURE: SPINE LUMBAR (ROUTINE) 09/01/2024 REASON FOR EXAM: ONGOING BACK PAIN WITH RADICULOPATHY TECHNIQUE: Multiplanar and multisequence images were obtained without IV contrast administration. COMPARISON: Lumbar spine series of 07/21/2024. FINDINGS: Vertebrae: Intact. No abnormal vertebral signal is seen. Alignment: Satisfactory. No evidence of spondylolysis or spondylolisthesis. Conus Medullaris: Satisfactory appearance and position. Tip projects at the L1-L2 level. L1-2: Unremarkable L2-3: Unremarkable L3-4: Unremarkable L4-5: Disc degeneration mild disc space narrowing. A mild broad-based disc protrusion is seen. No spinal canal stenosis or neural foraminal narrowing is noted. L5-S1: Disc degeneration with mild disc space narrowing. A qzha-bj-wurcpmnp central disc protrusion is seen. No significant spinal canal stenosis is noted. Possible mild left neural foraminal narrowing. Sacrum: Visualized portions show no significant abnormality. MRI/Spine Lumbar (Routine) IMPRESSION: Lower lumbar degenerative disc disease, as described. No significant spinal canal stenosis is seen. Reading Location: [place] [address] CC: Dr. Abby Isbell MD [employer] [address]: Signed Normal [facility] Lumbar Spine 2 or 3 Viewson 07-21-2024 Lumbar Spine 2 or 3 Views [facility] Imaging Services [address] [place] [address] Lumbar Spine 2 or 3 Views MR#: [id number] Acct: [id number] Name: KAIA WINKLER Rep #: [id number] : 1995 M 29 From: John Goel MD PCP: Dr. Abby Isbell MD Status: REG CLI Study: Lumbar Spine 2 or 3 Views Date of Exam: Exam# [id number] Ordering Dr: Abby Isblel MD PROCEDURE: LUMBAR SPINE 2 OR 3 VIEWS 07/21/2024 REASON FOR EXAM: LOW BACK INJURY TECHNIQUE: 2 view(s) of the lumbar spine, AP and lateral COMPARISON: None available FINDINGS: 5 pas-ggk-toghkfc lumbar vertebral type bodies identified. No fracture or malalignment. The disc spaces appear within limits. No osseous lesion identified. RAD/Lumbar Spine 2 or 3 Views IMPRESSION: Study appears within limits. Reading Location: [facility] CC: Dr. Abby Isbell MD [employer] [address]: Signed Normal [facility] Vital Signs Date Time Vital Sign Value Performing Clinician Faci lity 12-29-2024 11:08-0400 Body temperature 98.1 [degF] Abby Isbell MD Work Phone: [facility] 12-29-2024 11:08-0400 Diastolic blood pressure 88 mm[Hg] Abby Isbell MD Work Phone: [facility] 12-29-2024 11:08-0400 Heart rate 76 /min Abby Isbell MD Work Phone: [facility] 12-29-2024 11:08-0400 Respiratory rate 16 /min Abby Isbell MD Work Phone: [facility] 12-29-2024 11:08-0400 SaO2% (BldA) [Mass fraction] 100 % Abby Isbell MD Work Phone: [facility] 12-29-2024 11:08-0400 Systolic blood pressure 118 mm[Hg] Abby Isbell MD Work Phone: [facility] 12-29-2024 09:11-0400 Body height 177.8 cm Abby Isbell MD Work Phone: [facility] 12-29-2024 09:11-0400 Body mass index (BMI) [Ratio] 23.3 kg/m2 Abby Isbell MD Work Phone: [facility] 12-29-2024 09:11-0400 Body weight 73.9 kg Abby Isbell MD Work Phone: [facility] 09-19-2024 07:59-0400 Body height 177.8 cm Abby Isbell MD Work Phone: [facility] 09-19-2024 07:59-0400 Body mass index (BMI) [Ratio] 22.6 kg/m2 Abby Isbell MD Work Phone: [facility] 09-19-2024 07:59-0400 Body weight 71.38 kg Abby Isbell MD Work Phone: [facility] Encounters Encounter Date Encounter Type Care Provider Facility Start: 12-29-2024 End: 12-29-2024 Emergency department patient visit Abby Isbell MD Work Phone: -Emergency Department Work Phone: Start: 11-13-2024 End: 11-13-2024 ambulatory Abby Isbell MD Work Phone: -Physical Therapy Start: 11-13-2024 End: 11-13-2024 Discharged Recurring Myrna CHICAS -Physical Therapy Work Phone: Start: 11-13-2024 Registered Recurring Myrna CHICAS -Physical Therapy Work Phone: Start: 10-10-2024 End: 10-10-[address] Jaren Capellan MD -[facility] Work Phone: Start: 10-10-2024 End: 10-10-2024 ambulatory Abby Isbell MD Work Phone: [facility] Work Phone: Start: 10-08-2024 Registered Recurring Myrna CHICAS -Physical Therapy Work Phone: Start: 09-19-2024 End: 09-19-[address] Amish Ramirez MD -[facility] Start: 09-19-2024 End: 09-19-2024 ambulatory Abby Isbell MD Work Phone: [facility] Work Phone: Start: 09-01-2024 End: 09-01-2024 ambulatory Abby Isbell MD Work Phone: [facility] Work Phone: Start: 09-01-2024 End: 09-01-[address] Abby Isbell MD -[facility] Work Phone: Start: 09-01-2024 End: 09-01-2024 ambulatory Abby Isbell Facility:[facility] Start: 07-21-2024 End: 07-21-2024 ambulatory Abby Isbell MD Work Phone: [facility] Work Phone: Start: 07-21-2024 End: 07-21-[address] Abby Isbell MD -Radiology, [place] Work Phone: Start: 07-21-2024 End: 07-21-2024 ambulatory Abby Isbell Facility:[facility] Procedures Date Procedure Procedure Detail Performing Clinician Start: 12-29-2024 Estimated creatinine clearance Abby Isbell MD Work Phone: Start: 09-19-2024 X-ray of lumbosacral spine Abby Isbell MD Work Phone: Start: 09-01-2024 MRI of lumbar spine Karen Isbell MD Work Phone: Start: 07-21-2024 X-ray of lumbar spin e, two or three views Abby Isbell MD Work Phone: Plan of Treatment Date Care Activity Detail Author Start: 09-19-2024 Patient referral [facility] Work Phone: Start: 09-19-2024 X-ray of lumbosacral spine L/S Spine Bending Flex/Ext [facility] Start: 09-19-2024 XR Spine Lumbar and Sacrum Views [facility] Patient Education ED Fainting, V agal Reaction [facility] Work Phone: Patient referral [facility] Work Phone: Payers Date Payer Category Payer Self-pay 2024 Unknown [id number] Unknown [id number] Unknown [id number] 2.16.8 [id number] Unknown [id number] 2.16.8 [id number] Unknown [id number] 2.16.8 [id number] Unknown [id number] 2.16.8 [id number] Unknown [id number] 2.16.8 [id number] Unknown [id number] 2.16.8 [id number] Unknown [id number] 2.16.8 [id number] Social History Date Type Detail Facility Tobacco smoking stat us NHIS Unknown if ever smoked [facility] Work Phone: Start: 07-23-2024 Sex Male (finding) [facility] Start: 1995 Sex Assigned At Male [facility] Start: 09-19-2024 End: 12-29-2024 Tobacco smoking status NHIS Never smoked tobacco (finding) [facility] Sex Male [facility] Mental Status Date Assessment Result Facility 12-29-2024 Cognitive function Level Of Cons ciousness Awake;Alert;Appropriate;Follow s Commands [facility] Work Phone: Discharge summary 01-02-2025 Note Date & Type Note Facility 01-02-2025 Discharge summary Note Date/Time January 02, 2025 8:41am [facility] Physical Therapy [facility] [address] [place] [address] / REHABILITATION SERVICES DISCHARGE SUMMARY MR#: [id number] Acct: [id number] Name: KAIA WINKLER Rep #: [id number] : 1995 29 From: Ernst Cottrell DPT, OCS, CSCS Referring Dr.: JUAN FRANCISCO Farias Status: REG R Insurance: [facility] PAY INSURANCE Patient Information Patient Information: KAIA WINKLER was seen in my office for initial evaluation on 09/29/24. The following Plan of Care was established for this patient: POC Established Initial Frequency: 2x /Week Initial Duration: 4-6 Weeks Anticipated Interventions Patient/Client Instruction: Educate patient on: Condition and Plan of Care For the Purpose of:: To decrease pain, To increase ROM, To improve nutrient delivery to tissue, To improve muscle performance and motor function and To increase tolerance to activity/condition/position Therapeutic Exercise to Include: Strength training, Postural training, Flexibilty training, Passive ROM, Active ROM and Dynamic Lumbar Stabilization For the Purpose of:: To decrease pain, To increase ROM, To improve nutrient delivery to tissue and To improve muscle performance and motor function Manual Therapy Techniques to Include: Mobilization, Passive ROM and Soft tissue mobilization For the Purpose of:: To decrease pain, To increase ROM and To improve nutrient delivery to tissue Last Seen Last Seen: This patient was last seen in our office 11/13/24. Pertinent comments regardingtheir Physical therapy will appear below: Pt seen 13 visits of POC and was 65% better and "ready to be done" He was to f/u one month later for d/c if needed but did not schedule or attend. At this point, it has been over 6 weeks and I will discontinue from my care. At this point I will be discontinuing this patient from physical therapy. I would be happy to see this patient again in the future if found appropriate by the physician. Thank you! Ernst Cottrell, DPT, OCS, CSCS Balance/Gait/Functional tests Balance/Special Test Scores Oswestry Low Back Score: 5 <Electronically signed by Ernst Cottrell DPT, OCS, CSCS> 01/02/25 0841 CC: JUAN FRANCISCO Farias; Dr. Abby Isbell MD ~ EBG Signed [facility] Work Phone: Discharge summary 01-02-2025 Note Date & Type Note Facility 01-02-2025 Discharge summary [facility] Evaluation note 09-19-2024 Note Date & Type Note Facility 09-19-2024 Evaluation note Diagnosis Onset Date Resolution Lumbar radiculopathy acute September 19, 2024 7:59am Lumbar disc herniation acute Ju 2024 8:25am Lumbar radiculopathy acute October 10, 2024 8:25am [facility] Work Phone: Radiology Diagnostic study note 07-22-2024 Note Date & Type Note Facility 07-22-2024 Radiology Diagnostic study note [facility] Imaging Services [address] [place], [place] [address] Lumbar Spine 2 or 3 Views MR#: [id number] Acct: [id number] Name: KAIA WINKLER Rep #: [id number] : 1995 M 29 From: Shane Goel MD PCP: Dr. Abby Isbell MD Status: REG CL I Study:Lumbar Spine 2 or 3 Views Date of Exam: 07/21/24 Exam# [id number] Ordering Dr: Karen Isbell MD PROCEDURE: LUMBAR SPINE 2 OR 3 VIEWS 07/21/2024 REASON FOR EXAM: LOW BACK INJURY TECHNIQUE: 2 view(s) of the lumbar spine, AP and lateral COMPARISON: None available FINDINGS: 5 [id number] lumbar vertebral type bodies identified. No fracture or malalignment. The disc spaces appear within limits. No osseous lesion identified. RAD/Lumbar Spine 2 or 3 Views IMPRESSION: Study appears within limits. Reading Location: [id number] CC: Dr. Abby Isbell MD ~ [employer]: Signed [facility] Evaluation note Note Date & Type Note Facility Evaluation note No assessment information availa ble [facility] Work Phone: Hospital Discharge instructions Note Date & Type Note Facility Hospital Discharge instructions Additional Instructions Follow-up with your family doctor. Make sure your drinking plenty of fluids and eating regularly. [facility] Work Phone: Reason for referral (narrative) Note Date & Type Note Facility Reason for referral (narrative) No reason for referral information available [facility] Work Phone: Chief Complaint and Reason for Visit Chief Complaint Admit Date E-ORDER July 21, 2024 3:1 1pm Chief Complaint Admit Date E-ORDER July 21, 2024 3:1 1pm ONGOING BACK PAIN WITH RADICULOPATHY September 01, 2024 7:28am Chief Complaint Admit Date E-ORDER July 21, 2024 3:1 1pm ONGOING BACK PAIN WITH RADICULOPATHY September 01, 2024 7:28am LUMBAR SPINE September 19, 2024 7:59a m Room 4 September 19, 2024 8:14a m Chief Complaint Admit Date E-ORDER July 21, 2024 3:1 1pm ONGOING BACK PAIN WITH RADICULOPATHY September 01, 2024 7:28am LUMBAR SPINE September 19, 2024 7:59a m Room 4 September 19, 2024 8:14a m LUMBAR RADICULOPATHY. RX HERE October 08, 2024 6:00pm LUMBAR SPINE October 10, 2024 8:25 am Reason for Visit Admit Date Lumbar radiculopathy September 19, 2024 7:59 am Lumbar disc herniation October 10, 2024 8 :25am Lumbar radiculopathy October 10, 2024 8:2 5am Chief Complaint Admit Date ONGOING BACK PAIN WITH RADICULOPATHY September 01, 2024 7:28am LUMBAR SPINE September 19, 2024 7:59a m Room 4 September 19, 2024 8:14a m LUMBAR SPINE October 10, 2024 8:25 am LUMBAR RADICULOPATHY. RX HERE November 13, 2024 5:30pm SYNCOPE December 29, 2024 9:10am Chief Complaint Admit Date LUMBAR SPINE September 19, 2024 7:59a m Room 4 September 19, 2024 8:14a m LUMBAR SPINE October 10, 2024 8:25 am LUMBAR RADICULOPATHY. RX HERE November 13, 2024 5:30pm SYNCOPE December 29, 2024 9:10am Advance Directives No Advanced Directives Records Found Advance Directive Response Recorded Date/ Time Do you have a Healthcare Power of [employer]? No December 29, 2024 9:14am Summary Purpose Family History No Family History Records Found Additional Source Comments Care Teams (unrecognized sec tion and content) Team Status: Active Member Role Status Franklin Stevens Family Provider Active Abby Isbell MD Primary Care Provider Active Team Status: Inactive Member Role Status Franklin Isbell MD Primary Care Provider Active St art: July 21, 2024 End: July 21, 2024 Abby Isbell MD Attending Provider Active Start : July 21, 2024 End: July 21, 2024 Abby Isbell MD Referring Provider Active Start : July 21, 2024 End: July 21, 2024 Team Status: Active Member Role Status Franklin Isbell MD Primary Care Provider Active Team Status: Inactive Member Role Status Franklin Isbell MD Primary Care Provider Active St art: September 01, 2024 End: September 01, 2024 Abby Isbell MD Attending Provider Active Start : September 01, 2024 End: September 01, 2024 Abby Isbell MD Referring Provider Active Start : September 01, 2024 End: September 01, 2024 Team Status: Active Member Role Status Franklin Isbell MD Primary Care Provider Active St art: September 19, 2024 Abby Isbell MD Referring Provider Active Start : September 19, 2024 JUAN FRANCISCO Farias Attending Provider Active Star t: September 19, 2024 Team Status: Inactive Member Role Status Franklin Isbell MD Primary Care Provider Active St art: September 19, 2024 End: September 19, 2024 Dr. Amish Ramirez MD Attending Provider Active S tart: September 19, 2024 End: September 19, 2024 Team Status: Inactive Member Role Status Franklin Isbell MD Primary Care Provider Active St art: September 19, 2024 End: September 19, 2024 Abby Isbell MD Referring Provider Active Start : September 19, 2024 End: September 19, 2024 JUAN FRANCISCO Farias Attending Provider Active Star t: September 19, 2024 End: September 19, 2024 Team Status: Active Member Role Status Franklin Isbell MD Primary Care Provider Active St art: October 08, 2024 JUAN FRANCISCO Farisa Attending Provider Active Star t: October 08, 2024 JUAN FRANCISCO Farias Referring Provider Active Star t: October 08, 2024 Team Status: Inactive Member Role Status Franklin Isbell MD Primary Care Provider Active St art: October 10, 2024 End: October 10, 2024 Abby Isbell MD Referring Provider Active Start : October 10, 2024 End: October 10, 2024 Dr. Jaren Capellan MD Attending Provider Active Start: October 10, 2024 End: October 10, 2024 Team Status: Active Member Role/Relationship Status Franklin Isbell MD Primary Care Provider Active Team Status: Inactive Member Role/Relationship Status Franklin Isbell MD Primary Care Provider Active St art: September 01, 2024 End: September 01, 2024 Abby Isbell MD Attending Provider Active Start : September 01, 2024 End: September 01, 2024 Abby Isbell MD Referring Provider Active Start : September 01, 2024 End: September 01, 2024 Team Status: Inactive Member Role/Relationship Status Franklin Isbell MD Primary Care Provider Active St art: September 19, 2024 End: September 19, 2024 Abby Isbell MD Referring Provider Active Start : September 19, 2024 End: September 19, 2024 JUAN FRANCISCO Farias Attending Provider Active Star t: September 19, 2024 End: September 19, 2024 Team Status: Inactive Member Role/Relationship Status Franklin Isbell MD Primary Care Provider Active St art: September 19, 2024 End: September 19, 2024 Dr. Amish Ramirez MD Attending Provider Active S tart: September 19, 2024 End: September 19, 2024 Team Status: Inactive Member Role/Relationship Status Franklin Isbell MD Primary Care Provider Active St art: October 10, 2024 End: October 10, 2024 Abby Isbell MD Referring Provider Active Start : October 10, 2024 End: October 10, 2024 Dr. Jaren Capellan MD Attending Provider Active Start: October 10, 2024 End: October 10, 2024 Team Status: Active Member Role/Relationship Status Franklin Isbell MD Primary Care Provider Active St art: November 13, 2024 JUAN FRANCISCO Farias Attending Provider Active Star t: November 13, 2024 JUAN FRANCISCO Farias Referring Provider Active Star t: November 13, 2024 Team Status: Inactive Member Role/Relationship Status Franklin Isbell MD Primary Care Provider Active St art: December 29, 2024 End: December 29, 2024 Dr. Shivani Cheng , Emergency Provider Active Start: December 29, 2024 End: December 29, 2024 Team Status: Active Member Role/Relationship Status Franklin Isbell MD Primary care physician Active Team Status: Inactive Member Role/Relationship Status Franklin Isbell MD Primary care physician Active S tart: September 19, 2024 End: September 19, 2024 Abby Isbell MD Referring Provider Active Start : September 19, 2024 End: September 19, 2024 JUAN FRANCISCO Farias Attending physician Active Sta rt: September 19, 2024 End: September 19, 2024 Team Status: Inactive Member Role/Relationship Status Franklin Isbell MD Primary care physician Active S tart: September 19, 2024 End: September 19, 2024 Dr. Amish Ramirez MD Attending physician Active Start: September 19, 2024 End: September 19, 2024 Team Status: Inactive Member Role/Relationship Status Franklin Isbell MD Primary care physician Active S tart: October 10, 2024 End: October 10, 2024 Abby Isbell MD Referring Provider Active Start : October 10, 2024 End: October 10, 2024 Dr. Jaren Capellan MD Attending physician Active Start: October 10, 2024 End: October 10, 2024 Team Status: Inactive Member Role/Relationship Status Dates Abby Isbell MD Primary care physician Active S tart: November 13, 2024 End: November 13, 2024 JUAN FRANCISCO Farias Attending physician Active Sta rt: November 13, 2024 End: November 13, 2024 JUAN FRANCISCO Farias Referring Provider Active Star t: November 13, 2024 End: November 13, 2024 Team Status: Inactive Member Role/Relationship Status Dates Abby Isbell MD Primary care physician Active S tart: December 29, 2024 End: December 29, 2024 Dr. Shivani Cheng DO Attending physician Active Start: December 29, 2024 End: December 29, 2024 Dr. Shivani Cheng DO Emergency Departm ent Physician Active Start: December 29, 2024 End: December 29, 2024 Goals (unrecognized section and content) Goals may be documented in a n alternate sectionGoals may be documented in an alternate sectionGoals may be documented in an alternate sectionGoals may be documented in an alternate sectionGoals may be documented in an alternate sectionGoals may be documented in an alternate sectionGoals may be documented in an alternate section (unrecognized sect ion and content) No Status Records Found INFORMATION SOURCE (unrecogn ized section and content) DATE CREATED AUTHOR 01/09/2025 [facility] FOR RECORDS PERTAINING TO PATIENTS WHO ARE OR HAVE BEEN ENROLLED IN A CHEMICAL DEPENDENCY/SUBSTANCEABUSE PROGRAM, SOME INFORMATION MAY BE OMITTED. This clinical summary was aggregated from multiple sources. Caution should be exercised in using it in the provision of clinical care. This summary normalizes information from multiple sources, and as a consequence, information in this document may materially change the coding, format and clinical context of patient data. In addition, data may be omitted in some cases. CLINICAL DECISIONS SHOULD BE BASED ON THE PRIMARY CLINICAL RECORDS. [employer] provides no warranty or guarantee of the accuracy or completeness of information in this document.
== END | disposition home or self-care (01) ==
LOC: RAD 09:11
PROVIDERS: PCP Family Medicine; Referring Provider Family Medicine; Visit Provider Family Medicine
DX: S69.91XA Unspecified injury of right wrist, hand and finger(s), initial encounter (principal)
CPT/HCPCS: 73110